=== PATIENT | female | born 1965 | race Two or more races ===

== ENCOUNTER 2022-09-15 13:11 | Emergency (ER) | payer OTHER ==
[~2022-09-15] VITALS: Ht 160 cm; Wt 81.6 kg
--- NOTE | 2022-09-15 13:25 | NUR ---
PT PUT ON BED , AMBULATORY, CAME IN DUE TO FALL AND HAD SWOLLEN FOOT RT X 3DAYS TOOK ANALGESIC MOTRIN.
--- NOTE | 2022-09-15 13:30 | NUR ---
PT PUT ON BEDSIDE MONITOR AMDE COMFORTABLE.
--- NOTE | 2022-09-15 13:58 | NUR ---
RN VISITING AT BEDSIDE
[2022-09-15 15:03] VITALS: BP 125/71
--- NOTE | 2022-09-15 15:03 | NUR ---
Patient discharged to home in stable condition. Written and verbal after care instructions given. Patient verbalizes understanding of instruction.
== END 2022-09-15 15:03 | disposition home or self-care (01) ==
LOC: ER 13:15
DX: S92.351A Displaced fracture of fifth metatarsal bone, right foot, initial encounter for closed fracture (principal); S82.54XA Nondisplaced fracture of medial malleolus of right tibia, initial encounter for closed fracture; W10.9XXA Fall (on) (from) unspecified stairs and steps, initial encounter; Y93.89 Activity, other specified; Y92.89 Other specified places as the place of occurrence of the external cause; Y99.8 Other external cause status
CPT/HCPCS: 73610-TC; 73630-TC